=== PATIENT | female | born 1970 | race Caucasian/White ===

== ENCOUNTER 2023-09-05 20:13 | Outpatient (CLI) | payer BC, SELFPAY | END 2023-09-05 20:14 | disposition home or self-care (01) | PROVIDERS: Visit Provider Internal Medicine | DX: G47.33 Obstructive sleep apnea (adult) (pediatric) (principal); G47.10 Hypersomnia, unspecified | CPT/HCPCS: 95810 ==

== ENCOUNTER 2024-09-04 07:40 | Outpatient (CLI) | payer BC, SELFPAY | END 2024-09-04 07:41 | disposition home or self-care (01) | LOC: INJ CL 07:42 | PROVIDERS: Visit Provider Family Medicine | DX: M54.16 Radiculopathy, lumbar region (principal); M51.369 Other intervertebral disc degeneration, lumbar region without mention of lumbar back pain or lower extremity pain | CPT/HCPCS: 62323; J0702; Q9966 ==

== ENCOUNTER 2024-10-16 08:21 | Outpatient (CLI) | payer BC, SELFPAY | END 2024-10-16 08:22 | disposition home or self-care (01) | LOC: INJ CL 08:23 | PROVIDERS: PCP Family Medicine; Visit Provider Family Medicine | DX: M47.816 Spondylosis without myelopathy or radiculopathy, lumbar region (principal) | CPT/HCPCS: 64493; 64494; 64495; J0702; Q9966 ==